=== PATIENT | female | born 1980 | race African-American/Black ===

== ENCOUNTER 2018-02-27 11:39 | Emergency (ER) | payer MEDICAID ==
[~2018-02-27] VITALS: Ht 162.6 cm; Wt 108.9 kg
[~2018-02-27 11:39] MED LIST: AMOXICILLIN500 MG ORAL; PREDNISONE20 MG ORAL
[2018-02-27 12:00] VITALS: BP 131/74
[2018-02-27] MEDS ORDERED: Bacitracin Oint UD TOPIC ONE (12:15)
--- NOTE | 2018-02-27 12:15 | Emergency Room Report ---
History of Present Illness General Chief Complaint: Skin Rash/Abscess Source: Patient Present Illness HPI 37-year-old female patient presents ER complaining of wound on her lower abdomen and upper thigh. Patient reports that the wound appeared one week ago and began as a a blister in his symptoms popped, states it has been bleeding during this time. Patient reports that another blister has begun to perform an upper thigh adjacent to the Center on her abdomen. Patient reports that this was has not popped. Patient reports no other acute symptoms. Patient reports that she is been treating the popped blister by applying gauze and Band-Aids. Patient reports she has not taken any medication. Patient denies nausea vomiting chest pain shortness of breath. Patient also reports recent history of unprotected sex. Patient reports that she would like to be treated for possible STI infections. Patient denies hematuria, dysuria, vaginal discharge. Patient denies vaginal rash or other symptoms. Allergies: Coded Allergies: No Known Allergies (Unverified , 07/27/12) Patient History Past Medical History: see triage record Last Menstrual Period: 02/06 Now: No Reviewed Nursing Documentation: PMH: Agreed; PSxH: Agreed Nursing Documentation-PMH Past Medical History: No Stated History Review of Systems All Other Systems: negative except mentioned in HPI Physical Exam Vital Signs Date Time Temp Pulse Resp B/P (MAP) Pulse Ox O2 Delivery O2 Flow Rate FiO2 02/27/18 11:47 98.1 106 20 131/74 97 Room Air 98.1 Sp02 EP Interpretation: reviewed, normal General Appearance: well appearing, no apparent distress, alert, GCS 15, non- toxic Head: normocephalic, atraumatic Neck: full range of motion Respiratory: lungs clear, normal breath sounds, no rhonchi, no respiratory distress, no accessory muscle use, no wheezing, speaking full sentences Cardiovascular #1: regular rate, rhythm, no edema Musculoskeletal: back normal, digits/nails normal, gait/station normal, normal range of motion, non-tender Neurologic: alert, oriented x3, responsive, motor strength/tone normal, sensory intact Psychiatric: mood/affect normal Skin: other - left lower abdomen: 2cm unfoofed blister, no surrounding erythema , blood present, no active drainage; left upper anterior thigh: 1cm blister Medical Decision Making PA Attestation Dr. Abarca is my supervising Physician whom patient management has been discussed with. Diagnostic Impression: Primary Impression: Rash and other nonspecific skin eruption Additional Impression: Sexually transmitted infection ER Course Pt. presents to the ED c/o rash and need for STI treatment. Ddx considered but are not limited to atopic dermatitis, scabies, shingles. Ddx considered but are not limited to gonorrhea, chlamydia, cystitis, pyelonephritis. Vital signs: are WNL, pt. is afebrile Ordered medication. -Azithromycin -Rocephin ER COURSE Wound dressed and cleaned. Bacitracin applied. Informed patient likely secondary to friction between skin folds. Request referral from primary care with dermatology as needed. Followup with primary care provider to discuss Diabetes testing. UA unremarkable, patient asx, UTI unlikely. Urine . Discuss results with patient. Provided with medication to cover for STI infection. Advised to use safe sex practices including but not limited to use of condoms. Instructed patient to follow up with STI clinic and/or PCP for future STI treatment and prevention. Instructed patient to inform partner of need for treatment to prevent future infection. DISCHARGE: -Rx given for Bactroban At this time pt. is stable for d/c to home. Patient resting comfortably, in no acute distress, nontoxic appearing, smiling and laughing and playing on his phone. Will provide printed patient care instructions, and any necessary prescriptions. Care plan and follow up instructions have been discussed with the patient prior to discharge. Patient provided with list of healthcare clinics to establish primary care physician. Patient instructed to follow-up with primary care provider in 3 - 5 days. Patient questions asked and answered. ER precautions given. Patient instructed to return to ER immediately for any new or worsening of symptoms including but not limited to increasing SOB, persistent fever. - Please note that this Emergency Department Report was dictated using [employer] control worker technology software, occasionally this can lead to erroneous entry secondary to interpretation by the dictation equipment. Labs Test 02/27/18 11:20 Urine Color Pale yellow Urine Appearance Clear Urine pH 6 (4.5-8.0) Urine Specific [place] 1.015 (1.005-1.035) Urine Protein 1+ (NEGATIVE) Urine Glucose (UA) 4+ (NEGATIVE) Urine Ketones 1+ (NEGATIVE) Urine Occult Blood Negative (NEGATIVE) Urine Nitrite Negative (NEGATIVE) Urine Bilirubin Negative (NEGATIVE) Urine Urobilinogen Normal MG/DL (0.0-1.0) Urine Leukocyte Esterase Negative (NEGATIVE) Urine RBC 0-2 /HPF (0 - 2) Urine WBC 0-2 /HPF (0 - 2) Urine Squamous Epithelial Cells Occasional /LPF Urine Bacteria Occasional /HPF (NONE) Urine HCG, Qualitative Negative (NEGATIVE) Last Vital Signs Date Time Temp Pulse Resp B/P (MAP) Pulse Ox O2 Delivery O2 Flow Rate FiO2 02/27/18 12:00 98.1 20 131/74 97 Room Air 98.1 02/27/18 11:47 106 Disposition: HOME, SELF-CARE Condition: Stable Scripts Mupirocin Calcium (Bactroban) 15 Gm Cream..g. 1 APPLIC TOPIC THREE TIMES A DAY for 7 Days, GM Prov: Blayne Mckeon 02/27/18 Patient Instructions: Rash, Sexually Transmitted Disease, [id number] Additional Instructions: Followup with primary care provider in 3 -5 days. Follow up with STI clinic for testing and further management as needed. Informed sexual partners of need for testing. Use protection when having sex. Take medications as directed. Patient questions asked and answered. ER precautions given, patient instructed to return to ER immediately for any new or worsening of symptoms. Blayne Mckeon February 27, 2018 12:15
[2018-02-27 12:57] LABS: APPEARANCE,URINE CLEAR; BILIRUBIN, URINE NEGATIVE (NEGATIVE); COLOR,URINE PALE YELLOW; GLUCOSE, URINE (UA) 4+ (NEGATIVE); KETONES,URINE 1+ (NEGATIVE); LEUKOCYTE ESTERASE ,URINE NEGATIVE (NEGATIVE); NITRITE,URINE NEGATIVE (NEGATIVE); PH,URINE 6 (4.5-8.0); PROTEIN,URINE 1+ (NEGATIVE); UROBILINOGEN,URINE NORMAL MG/DL (0.0-1.0)
[2018-02-27] MEDS ORDERED: BACTROBAN CR1 APPLIC TOPIC (13:22)
[2018-02-27] MEDS ORDERED: Azithromycin 250mg tab ORAL ONE (13:30)
[2018-02-27] MEDS ORDERED: Lidocaine 1% MPF 10mg/ml 5ml INJ ONE (13:30)
[2018-02-27 13:48] VITALS: BP 129/77
== END 2018-02-27 13:30 | disposition home or self-care (01) ==
LOC: EMR 12:30
DX: R21 Rash and other nonspecific skin eruption (principal); A64 Unspecified sexually transmitted disease
CPT/HCPCS: 81003; 81025; 96372; 99283; J0696; Q0144